=== PATIENT | female | born 1945 | race Caucasian/White ===

== ENCOUNTER → 2023-08-11 07:35 | Outpatient (REF) | payer MEDICARE, BC, SELFPAY | LOC: MRI 07:35 | PROVIDERS: ATTENDING PHYSICIAN Orthopaedic Surgery; FAMILY PHYSICIAN Family Medicine; REFERRING PHYSICIAN Anesthesiology Pain Medicine | DX: M51.36 Other intervertebral disc degeneration, lumbar region (principal) | CPT/HCPCS: 72148 ==

== ENCOUNTER → 2023-11-05 12:45 | Outpatient (REF) | payer MEDICARE, BC, SELFPAY | LOC: RAD 12:45 | PROVIDERS: ATTENDING PHYSICIAN Family Medicine | DX: R60.0 Localized edema (principal) | CPT/HCPCS: 93970 ==

== ENCOUNTER → 2023-12-11 19:23 | Outpatient (REF) | payer MEDICARE, BC, SELFPAY | LOC: MRI 19:23 | PROVIDERS: ATTENDING PHYSICIAN Specialist; FAMILY PHYSICIAN Family Medicine | DX: M48.062 Spinal stenosis, lumbar region with neurogenic claudication (principal) | CPT/HCPCS: 72148 ==

== ENCOUNTER → 2024-02-19 10:25 | Outpatient (REF) | payer MEDICARE, BC, SELFPAY | LOC: RAD 10:25 | PROVIDERS: ATTENDING PHYSICIAN Family Medicine | DX: M80.08XA Age-related osteoporosis with current pathological fracture, vertebra(e), initial encounter for fracture (principal) | CPT/HCPCS: 77080 ==

== ENCOUNTER 2024-04-18 10:35 | Emergency (ER) | payer MEDICARE, BC, SELFPAY ==
[2024-04-18 10:40] VITALS: BP 146/95
--- NOTE | 2024-04-18 11:13 | ED.GENMED ---
Addendum entered and electronically signed by Rubina Tee MD 04/19/24 14:03:
Message received from Dr Coker (opthalmology) stating that patient should follow up with [facility]. Attempted to call patient however no answer. voicemail left.
Original Note:
History of Present Illness
General
Chief Complaint: Fall
Time Seen by Provider: 04/18/24 11:05
History of Present Illness
History of Present Illness:
Patient is a 78-year-old woman with history of A-fib on Pradaxa presenting to the emergency department after a fall. Patient states that she tripped and fell hitting her head and landing on her left ribs. She is complaining of rib pain and left
arm pain. She initially had a nosebleed but that resolved. She did not lose consciousness. She was initially having tooth pain however that has also resolved since arriving here. No numbness tingling. No weakness.
Phy Exam
Physical Exam
Physical Exam:
GENERAL: no acute distress
HEENT: atraumatic, extraocular muscles intact, no signs of entrapment, dentition intact, no other obvious trauma, dried blood around nares/mouth, small hematoma over the left zygomatic arch
NECK: no midline tenderness cervical collar in place
BACK: no midline tenderness, no other obvious trauma
CHEST: Tenderness to the left lateral ribs, no subcutaneous emphysema, no other obvious trauma
LUNGS: clear to auscultation bilaterally
CARDIOVASCULAR: regular rate and rhythm
ABDOMEN: soft, non-tender, no masses, no other obvious trauma
PELVIS: stable, no obvious injury
EXTREMITIES: Tenderness to the left mid forearm otherwise moving all extremities, distal pulses intact, no other obvious trauma
NEUROLOGIC: awake, alert x 3, no focal deficits
Course
Orders/Labs/Results
Orders:
Orders
04/18/24 10:45
CT Cervical Spine W/o Iv Contr Urgent
Comment:
Reason For Exam: Trauma
CT Head W/o Iv Contrast Urgent
Comment:
Reason For Exam: trauma; takes pradaxa
04/18/24 11:05
CT Chest W/o Iv Contrast Urgent
Comment:
Reason For Exam: rib pain
04/18/24 11:12
CR Forearm - Left 2 View Urgent
Comment:
Reason For Exam: pain, fall
04/18/24 11:13
Acetaminophen [Tylenol] 650 mg PO NOW STA
04/18/24 12:44
Splints/Slings/Crut- Treatment ONCE
04/18/24 15:15
Lidocaine [Lidocaine 4% Patch] 1 patch TOPICAL DAILY
Apply Lidocaine patch(s) to:: left ribs
Vital Signs
Initial and Last Documented VS:
Initial Vital Signs
Temp Pulse Resp BP Pulse Ox
98.5 F 79 16 146/95 96
04/18/24 10:40 04/18/24 10:40 04/18/24 10:40 04/18/24 10:40 04/18/24 10:40
Last Documented Vital Signs
Temp Pulse Resp BP Pulse Ox
98.5 F 88 16 126/66 96
04/18/24 10:40 04/18/24 15:18 04/18/24 15:18 04/18/24 15:18 04/18/24 15:18
MDM/Problems Addressed
Differential Diagnosis Includes:
Patient is a 78-year-old woman presenting to the emergency department after mechanical trip and fall with rib pain and wrist pain. She is on Pradaxa. Vitals unremarkable and exam does show tenderness over her left lateral ribs and left mid to
distal forearm. She does have full range of motion of her wrist. She is neurovascularly intact. Concern for rib fracture, arm fracture as well as possible traumatic intracranial injury given that she is on Pradaxa. Will check CT scan of her head
neck and chest. Will obtain x-ray. Will pain control.
*Critical Care Note
Total Time (30-74mins, 75-104mins- exclusive of procedures): Not Applicable
Update Note
Update Note:
X-ray per my interpretation with distal ulnar fracture. Will place patient in short arm splint. CT scan with 'There is a comminuted and minimally displaced fracture of the left orbital floor and posterior wall of left maxillary sinus. There is
associated hyperdense fluid within the left maxillary sinus consistent with blood products.
Minimally displaced left zygomatic arch fracture.'
On reevaluation patient with no vision changes. No blurry vision. Full range of motion of her extraocular muscles.
I did discuss with oral maxillofacial surgery at first who recommended discussing with plastics or ophthalmology as they do not treat midface fractures. I did message both plastics and ophthalmology. Plastics recommended outpatient follow-up given
that there is no threat to her eyeball. Ophthalmology recommended oculoplastics follow-up with Dr. Temple. I did send a video of those images. They will determine if patient needs [facility] follow-up or if they can follow-up with
ophthalmology here.
Unfortunately we did wait a few hours and we did not hear back from ophthalmology. Patient is antsy to go home. She remains without any vision changes. She remains asymptomatic. Will discharge at this time. I will call patient to let them know
if they recommended [facility] follow-up. Strict return precautions given including but not limited to changes to her vision, extraocular muscle entrapment, worsening swelling, worsening headache
ED Attending Note
-
Portions of this chart may have been created with voice recognition software.� Occasional wrong word or��sound alike� substitutions may have occurred due to the inherent limitations of voice recognition software.
Discharge Plan
Departure
Patient Disposition: Home (Routine Discharge)
Date of Disposition: 04/18/24
Time of Disposition: 15:44
Patient with high blood pressure during this ER visit?: No
Discharge Problem:
Left ulnar fracture, Orbital floor fracture, Fracture of left maxillary sinus, Zygomatic fracture
Instructions: Preventing falls in adults
Referrals:
Maliha Coker MD [Active] -
Collins Joshua MD [Active] -
Yogesh Nam DO [Family Provider] -
Activity Restrictions/Additional Instructions:
When a patient comes into the Emergency Department, many diagnostic studies such as x-rays & CT Scans are completed to identify injuries. During these diagnostic studies, there are sometimes things like cysts, nodules, tumors, etc. that are
'incidentally found' and seen on these studies. No further workup was required during your hospitalization for your incidental findings, but please follow-up with your Primary Care Physician/Specialist regarding the below incidental findings. Your
Primary Care Physician/Specialist will instruct you/guide you through any further workup.
Your incidental findings:
There is a 9 mm nodule within the lateral right lower lobe for which 3 month follow-up CT chest is recommended.
Please follow-up with orthopedic surgery regarding the wrist fracture. Please follow-up with the eye doctor that specializes in oculoplastics for your fractures. I will call you if they recommend you to follow-up with [facility].
Interventions
Interventions:
ED-Musculoskeletal Assessment Last Done: 04/18/24 10:40
ED- Neurological Assessment Last Done: 04/18/24 10:40
ED-Skin Assessment Last Done: 04/18/24 10:40
Discharge Date and Time
Print Language: PERUVIAN
[2024-04-18] MEDS: TYLENOL 650 MG PO (11:46)
[2024-04-18 15:18] VITALS: BP 126/66
[2024-04-18] MEDS: LIDOCAINE 4% PATCH 1 PATCH TOPICAL (15:19)
== END 2024-04-18 16:12 | disposition home or self-care (01) ==
LOC: EMR 10:35
PROVIDERS: EMERGENCY PHYSICIAN Student in an Organized Health Care Education/Training Program; FAMILY PHYSICIAN Family Medicine
DX: S02.40DA Maxillary fracture, left side, initial encounter for closed fracture (principal); S02.32XA Fracture of orbital floor, left side, initial encounter for closed fracture; S52.202A Unspecified fracture of shaft of left ulna, initial encounter for closed fracture; S02.40FA Zygomatic fracture, left side, initial encounter for closed fracture; W01.0XXA Fall on same level from slipping, tripping and stumbling without subsequent striking against object, initial encounter; R07.81 Pleurodynia; M79.632 Pain in left forearm; R04.0 Epistaxis; I48.91 Unspecified atrial fibrillation; Z79.01 Long term (current) use of anticoagulants
CPT/HCPCS: 99284; 70450; 71250; 72125; 73090

== ENCOUNTER → 2024-06-05 08:46 | Outpatient (REF) | payer MEDICARE, BC, SELFPAY | LOC: RSP 08:46 | PROVIDERS: ATTENDING PHYSICIAN Internal Medicine Critical Care Medicine; FAMILY PHYSICIAN Family Medicine | DX: J44.9 Chronic obstructive pulmonary disease, unspecified (principal) | CPT/HCPCS: 94727; 94729; 88738; 94010; 94761 ==

== ENCOUNTER → 2024-12-04 10:37 | Outpatient (REF) | payer MEDICARE, BC, SELFPAY ==
[2024-12-04 12:52] LABS: ALT (SGPT) 22 U/L (0-35); AST (SGOT) 18 U/L (14-36); Albumin 3.8 g/dl (3.5-5.0); Alkaline Phosphatase 60 U/L (38-126); Blood Urea Nitrogen 17 mg/dl (7-17); Calcium 9.3 mg/dl (8.4-10.2); Carbon Dioxide 30 mmol/L (22-30); Chloride 101 mmol/L (98-107); Glucose 83 mg/dl (70-99); Potassium 4.3 mmol/L (3.5-5.1); Sodium 133 mmol/L (135-145); Total Protein 6.2 g/dl (6.3-8.2); eGFR > 60.00
== END ==
LOC: REG 10:37
PROVIDERS: ATTENDING PHYSICIAN Physician Assistant Medical
DX: R79.89 Other specified abnormal findings of blood chemistry (principal)
CPT/HCPCS: 36415; 80053

== ENCOUNTER → 2025-01-13 10:20 | Outpatient (REF) | payer MEDICARE, BC, SELFPAY ==
[2025-01-13 16:03] LABS: ALT (SGPT) 21 U/L (0-35); AST (SGOT) 22 U/L (14-36); Albumin 3.7 g/dl (3.5-5.0); Alkaline Phosphatase 62 U/L (38-126); Blood Urea Nitrogen 14 mg/dl (7-17); Calcium 9.2 mg/dl (8.4-10.2); Carbon Dioxide 32 mmol/L (22-30); Chloride 102 mmol/L (98-107); Glucose 80 mg/dl (70-99); Potassium 4.3 mmol/L (3.5-5.1); Sodium 135 mmol/L (135-145); Total Protein 6.2 g/dl (6.3-8.2); eGFR > 60.00
== END ==
LOC: REG 10:20
PROVIDERS: ATTENDING PHYSICIAN Physician Assistant Medical
DX: U07.1 COVID-19 (principal)
CPT/HCPCS: 36415; 80053